=== PATIENT | female | born 1980 | race Caucasian/White ===

== ENCOUNTER → 2023-04-10 12:27 | Outpatient (CLI) | payer OTHER, SELFPAY ==
--- NOTE | ~2023-04-10 | MM_ITS ---
EXAMINATION: MM screening dougie BI w belén HISTORY: Screening mammogram TECHNIQUE: Craniocaudal and mediolateral oblique 3-D tomosynthesis images were obtained and synthetic 2-D images were generated. CAD analysis was submitted and interpreted. COMPARISON: No prior mammogram is available for comparison at this institution. BREAST PARENCHYMAL COMPOSITION: The breasts are extremely dense, which lowers the sensitivity of mamm ography. FINDINGS: Possible bilateral breast masses. The dense stroma may obscure masses. Bilateral complete b reast ultrasound examination is recommended. IMPRESSION: 1. Possible breast masses, dense stroma 2. Bilateral complete breast ultrasound examination is recommended BI-RADS Category 0: Incomplete: Needs additional imaging evaluation. Reviewed, dictated and finalized at location A. 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
== END ==
PROVIDERS: PCP Obstetrics & Gynecology; Visit Provider Obstetrics & Gynecology
DX: Z12.31 Encounter for screening mammogram for malignant neoplasm of breast (principal); R92.8 Other abnormal and inconclusive findings on diagnostic imaging of breast
CPT/HCPCS: 77063; 77067

== ENCOUNTER → 2023-04-19 14:34 | Outpatient (CLI) | payer OTHER, SELFPAY ==
--- NOTE | ~2023-04-19 | US_ITS ---
EXAMINATION: US breast BI complete HISTORY: Possible breast masses on screening mammogram TECHNIQUE: Complete bilateral breast ultrasound performed including all four quadrants and the subare olar breast. FINDINGS: There is a 4.5 x 1.9 cm oval, circumscribed, parallel, complex cystic and solid mass at the 4:00 location, 6 cm from the nipple with mild posterior acoustic shadowing and internal vascularity in the left breast. No additional cystic or solid mass is identified in either breast. IMPRESSION: Indeterminate left breast mass. Ultrasound guided biopsy is recommended. BI-RADS category 4, suspicious findings. Reviewed, dictated and finalized at location A. 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
== END ==
PROVIDERS: PCP Obstetrics & Gynecology; Visit Provider Obstetrics & Gynecology
DX: R92.8 Other abnormal and inconclusive findings on diagnostic imaging of breast (principal)
CPT/HCPCS: 76641